=== PATIENT | male | born 1960 | race Caucasian/White ===

== ENCOUNTER → 2016-08-17 | Day surgery (SDC) | payer BC ==
[~2016-08-17] VITALS: Ht 182.9 cm; Wt 108.9 kg
[~2016-08-17] MED LIST: ATEN50TA PO; DEXAMETHASONE SOD PHOS 20 MG/5 ML VIAL. ONE; DOXY100C2 PO; DUTA0.5C PO; FAMOTIDINE 20 MG/2 ML VIAL ONE; GENTAMICIN SULFATE 80 MG in IV NORMAL SALINE 100ML 100 ML IV ONE; HYDROmorphone 2 MG/ML VIAL IV PRN; IV RINGERS,LACTATED 1000ML 1,000 ML IV SCH; KETOROLAC 30 MG/ML INJ FOR OR. INJ ONE; LIDOCAINE 1% 1 ML SYRINGE. ID PRN; LIDOCAINE 2% 100 MG/5 ML DISP.SYRIN. ONE; MORPHINE SULFATE 2 MG/ML DISP.SYRIN. IV PRN; ONDANSETRON PF 4 MG/2 ML VIAL. IV PRN; ONDANSETRON PF 4 MG/2 ML VIAL. ONE; PROCHLORPERAZINE 10 MG/2 ML VIAL. IV PRN; PROPOFOL 20 ML IV ONE; SEVOFLURANE 16 TO 30 MINUTES. IH ONE; TAMS0.4C97 PO; ePHEDrine PF IN SALINE 50 MG/5 ML DISP.SYRIN IV ONE; fentaNYL PF VIAL 100 MCG/2 ML VIAL IV PRN
[2016-08-17 07:39] LABS: BASO % 0 % (0-3); EOS % 1 % (0-3); HEMATOCRIT 45.5 % (39.0-53.0); HEMOGLOBIN 15.3 g/dL (13.0-17.5); LYMPH # 2.1 x10^3/uL (1.0-4.8); LYMPH % 32 % (24-48); MEAN CORPUSCULAR HEMOGLOBIN 30 pg (25-35); MEAN CORPUSCULAR HGB CONC 34 g/dL (31-37); MEAN CORPUSCULAR VOLUME 90 fL (79-100); MONO % 12 % (0-9); NEUT % 55 % (31-73); PLATELET COUNT 211 x10^3/uL (140-400); RED BLOOD COUNT 5.04 x10^6/uL (4.30-5.70); RED CELL DISTRIBUTION WIDTH 12.9 % (11.5-14.5); WHITE BLOOD COUNT 6.8 x10^3/uL (4.0-11.0)
[2016-08-17 07:41] LABS: BILIRUBIN,URINE NEGATIVE (NEG); GLUCOSE,URINE NEGATIVE (NEG); NITRITE,URINE NEGATIVE (NEG); PH,URINE 5.5; PROTEIN,URINE NEGATIVE (NEG-TRACE); UROBILINOGEN,URINE 0.2 mg/dL (0.2 mg/dL)
[2016-08-17 07:52] LABS: CALCIUM 8.3 mg/dL (8.5-10.1); CREATININE 1.1 mg/dL (0.7-1.3); POTASSIUM 3.7 mmol/L (3.5-5.1)
[2016-08-17 07:57] LABS: BACTERIA,URINE FEW /HPF (0-FEW); RBC,URINE RARE /HPF (0-2); SQUAMOUS EPITHELIAL CELL,UR OCC /LPF
--- NOTE | 2016-08-17 09:10 | PDOC ---
BRIEF OPERATIVE NOTE Date: Aug 17, 2016 Pre-Op Diagnosis Elevated PSA, BPH Post-Op Diagnosis Same Procedure Performed Transrectal Ultrasound, ultrasound guided prostate biopsies Surgeon Cynthia Anesthesia Type: General Blood Loss Minimal Specimens Obtained 13 prostate biopsies Findings same Complications None Additional Remarks Tolerated well BRETT PETERSON DO Aug 17, 2016 09:10
--- NOTE | 2016-08-17 09:11 | DISCH ---
DISCHARGE INSTRUCTIONS Condition on Discharge Condition on Discharge: Stable Activity After Discharge Activity Instructions for Disc: Avoid exertion Lifting Instructions after Dis: Do not lift >10 pounds Driving Instructions after Dis: Do not drive today Diet after Discharge Diet after Discharge: Regular Additional Diet Restrictions: drink 8 12oz glasses of water/day Contacting the after DC Call your doctor for: Concerns you may have Follow-Up Follow up with: Dr Peterson will call you with results of prostate biopsies BRETT PETERSON DO Aug 17, 2016 09:11
--- NOTE | 2016-08-17 09:13 | OP ---
DATE OF SURGERY: 08/17/2016 PREOPERATIVE DIAGNOSIS: Elevated PSA (5.0). POSTOPERATIVE DIAGNOSIS: Elevated PSA (5.0). PROCEDURE: Transrectal ultrasound of prostate, ultrasound-guided prostate biopsies. SURGEON: Brett Peterson DO. ANESTHESIA: General. INDICATIONS AND JUDGMENT: This is a 56-year-old male who has a history of an elevated PSA. Most recently, the patient was found to have a PSA of 5.0. The percent free PSA was only 13.8%. Since he had a prolonged elevated PSA, it was felt that he should probably undergo prostate ultrasound needle biopsies. The procedure was explained to the patient. He appeared to understand and was agreeable. DESCRIPTION OF PROCEDURE: The patient was preloaded with IV Rocephin and gentamicin. He was taken to the operating room and placed on the operating room table in a supine position, given a general anesthetic and then placed in a left lateral position with his knees tucked. A well-lubricated ultrasound probe was then advanced into the rectum and the prostate was visualized in both the transverse and sagittal modes. The prostate was measured at 74 grams. There did appear to be some hypoechoic areas. The ultrasound probe was then fitted with a prostate guide and reinserted into the rectum. Using ultrasound guidance, biopsies of the prostate on the patient's left side were taken from apex to base and then the probe was advanced a little more medially and once again apex to the base, so, a total of six biopsies were taken on the left side. The probe was then repositioned and the right side of prostate was reviewed in the sagittal mode and prostate biopsies were taken from the apex to the base, a total of six biopsies were taken plus one extra biopsy for what appeared to be a hypoechoic area as well. A total of 13 biopsies were performed and submitted to pathology for permanent sections. The patient tolerated the procedure well and was sent to recovery room in satisfactory condition. Plans will be to send the patient home with instruction sheet. He will call me if he has problems. I will call him with results of the biopsies. He has Cipro antibiotics that he will complete at home over the next 5 days. BRETT PETERSON DO DR: JABARI/connie JOB#: [id number] / [id number]
[2016-08-17 09:40] VITALS: BP 118/62
--- NOTE | 2016-08-19 13:59 | PATHOLOGY ---
PATHOLOGY REPORT * * * * * * * * FINAL DIAGNOSIS: A. Prostate, left apex, core needle biopsy: - PROSTATIC ADENOCARCINOMA, SKYE GRADE 3+4. - CARCINOMA IS PRESENT IN 2 OUT OF 2 CORE NEEDLE BIOPSIES, AND IT OCCUPIES APPROXIMATELY 30% OF SPECIMEN. B. Prostate, left mid, core needle biopsy: - PROSTATIC ADENOCARCINOMA, SKYE GRADE 3+4. - CARCINOMA IS PRESENT IN 2 OUT OF 2 CORE NEEDLE BIOPSIES, AND IT OCCUPIES APPROXIMATELY 40% OF SPECIMEN. C. Prostate, left base, core needle biopsy: - Prostatic tissue with no evidence of carcinoma. D. Prostate, right apex, core needle biopsy: - PROSTATIC ADENOCARCINOMA, SKYE GRADE 4+3. - CARCINOMA IS PRESENT IN 1 OUT OF 3 CORE NEEDLE BIOPSIES, AND IT OCCUPIES APPROXIMATELY 10% OF SPECIMEN. E. Prostate, right mid, core needle biopsy: - Prostatic tissue with no evidence of carcinoma. F. Prostate, right base, core needle biopsy: - Prostatic tissue with no evidence of carcinoma. (Please see comment) SYNOPTIC CANCER STAGING REPORT Procedure: Needle Biopsy Specimen Site: Prostatic structure Tumor Site: Prostatic structure TUMOR Histologic Type: Adenocarcinoma (acinar, not otherwise specified) Histologic Grade Cordova Pattern: Skye pattern (specifiy) Primary (Predominant) Pattern: Grade 3 Secondary (Worst Remaining) Pattern: Grade 4 Total Skye Score: 7 EXTENT Tumor Quantitation Number of Cores Positive: 2 Total Number of Cores: 2 Proportion (%) of prostatic tissue involved by tumor: 40 ACCESSORY FINDINGS Lymph-Vascular Invasion: Not identified ADDITIONAL NON-TUMOR Additional Pathologic Findings: None identified COMMENT: The findings in this case were relayed to Kimmy in Dr. Bayron Marie's office on 08/18/16. This case has also been reviewed by Dr. Brooklyn Toth who agrees with the diagnosis. Note that the synoptic report refers to the tumor present in specimen "B" only. (CHEPE:raven; d/t: 08/18/2016) REPORT ELECTRONICALLY SIGNED BY: Chelsi Junior M.D. DATE/TIME: 08/19/2016 13:58 * * * * * * * * GROSS PATHOLOGY: A. Submitted in formalin, labeled "Alphonso Spence, left apex," are two needle cores of gilbert tissue measuring 2.1 and 2.2 cm in length, by less than 0.1 cm in diameter. Tissue is submitted in toto in cassette A1. B. Submitted in formalin, labeled "Alphonso Spence, left mid," are two needle cores of gilbert tissue measuring 2.1 and 2.3 cm in length, by less than 0.1 cm in diameter. Tissue is submitted in toto in cassette B1. C. Submitted in formalin, labeled "Alphonso Spence, left base," are two needle cores of gilbert tissue measuring 1.5 and 1.6 cm in length, by less than 0.1 cm in diameter. Tissue is submitted in toto in cassette C1. D. Submitted in formalin, labeled "Alphonso Spence, right apex," are three needle cores of gilbert tissue measuring 1.0, 1.7, and 2.4 cm in length, by less than 0.1 cm in diameter. Tissue is submitted in toto in cassette D1. E. Submitted in formalin, labeled "Alphonso Spence, right mid," are two needle cores of gilbert tissue measuring 1.1 and 1.5 cm in length, by less than 0.1 cm in diameter. Tissue is submitted in toto in cassette E1. F. Submitted in formalin, labeled "Alphonso Spence, right base," are two needle cores of gilbert tissue measuring 1.3 and 1.4 cm in length, by less than 0.1 cm in diameter. Tissue submitted in toto in cassette F1. (CAA; 08/17/2016) INITIAL CPT CODE(S): A; 84760 B; 36080 C; 32312 D; 40153 E; 41986 F; 54033 Professional services performed by [facility] at [address] [address] Technical services performed by [facility] at [address] [place] [address], [address], [place] [address]. SPECIMEN(S) RECEIVED: A.Left apex prostate, needle biopsy B.Left mid prostate, needle biopsy C.Left base prostate, needle biopsy D.Right apex prostate, needle biopsy E.Right mid prostate, needle biopsy F.Right base prostate, needle biopsy CLINICAL HISTORY: Elevated PSA 5.0 PATIENT: ALPHONSO SPENCE /AGE: 205/27/1960 (Age: 56) PATIENT #: [id number] ALT CASE #: SPECIMEN COLLECTION DATE: 08/17/2016 SPECIMEN RECEIVED DATE: 08/17/2016 [facility] - [id number] [place] [address] - PHONE: [phone] * * * END OF REPORT * * *
== END | disposition home or self-care (01) ==
LOC: SURG 06:46
PROVIDERS: ATTEND Urology
DX: C61 Malignant neoplasm of prostate (principal)
CPT/HCPCS: 36415; 55700; 76942; 80048; 81001; 85027; 88305; C1887; J0690; J1100; J1580; J1885; J2405; J2704; S0028

== ENCOUNTER → 2016-08-26 | Outpatient (CLI) | payer BC ==
[2016-08-17 09:40] VITALS: BP 118/62
[~2016-08-26] MED LIST changes: -DEXAMETHASONE SOD PHOS 20 MG/5 ML VIAL. ONE; -FAMOTIDINE 20 MG/2 ML VIAL ONE; -GENTAMICIN SULFATE 80 MG in IV NORMAL SALINE 100ML 100 ML IV ONE; -HYDROmorphone 2 MG/ML VIAL IV PRN; -IV RINGERS,LACTATED 1000ML 1,000 ML IV SCH; -KETOROLAC 30 MG/ML INJ FOR OR. INJ ONE; -LIDOCAINE 1% 1 ML SYRINGE. ID PRN; -LIDOCAINE 2% 100 MG/5 ML DISP.SYRIN. ONE; -MORPHINE SULFATE 2 MG/ML DISP.SYRIN. IV PRN; -ONDANSETRON PF 4 MG/2 ML VIAL. IV PRN; -ONDANSETRON PF 4 MG/2 ML VIAL. ONE; -PROCHLORPERAZINE 10 MG/2 ML VIAL. IV PRN; -PROPOFOL 20 ML IV ONE; -SEVOFLURANE 16 TO 30 MINUTES. IH ONE; -ePHEDrine PF IN SALINE 50 MG/5 ML DISP.SYRIN IV ONE; -fentaNYL PF VIAL 100 MCG/2 ML VIAL IV PRN
--- NOTE | 2016-08-26 16:54 | RAD ---
Indication follow-up prostate malignancy. Axial images through the abdomen and pelvis were obtained. Oral contrast was administered. IV contrast was not. Note is made of a previous examination 10/30/2014. The lung bases are clear. The liver and spleen appear unremarkable. The gallbladder appears grossly normal. No pancreatic abnormality is seen. No adrenal anomalies are seen. There are bilateral renal calculi. The largest resides in the left kidney measuring approximately 5 to 6 mm. There are few retroperitoneal lymph nodes. These are likely incidental and appears similar to the previous exam. An acute finding in the abdomen is not seen. There is no definite evidence of metastatic disease. In the pelvis no acute finding is seen. Significant adenopathy is not apparent. The prostate is moderately enlarged. The bony structures which are visualized appear unremarkable apart from some modest degenerative change. If metastatic disease to the bones is suspect a bone scan should be considered. IMPRESSION: No acute finding seen in the abdomen or pelvis. Bilateral renal calculi. Enlarged prostate. No definite evidence of metastatic disease PQRS Compliance Statement: One or more of the following individualized dose reduction techniques were utilized for this examination: 1. Automated exposure control 2. Adjustment of the mA and/or kV according to patient size 3. Use of iterative reconstruction technique
== END | disposition home or self-care (01) ==
LOC: CT 15:34
PROVIDERS: ATTEND Urology
DX: N28.1 Cyst of kidney, acquired (principal); N40.0 Benign prostatic hyperplasia without lower urinary tract symptoms
CPT/HCPCS: 74176